=== PATIENT | male | born 1950 | race Caucasian/White ===

== ENCOUNTER 2016-09-29 11:37 | Emergency (ER) | payer MEDICARE, OTHER ==
[2016-09-29 12:24] VITALS: BP 160/85
[2016-09-29 12:24] LABS: Hematocrit 48.2 % (42.0-52.0); Hemoglobin 15.8 gm/dL (13.5-18.0); Mean Cell Volume 88.3 fl (78-100); Mean Corpuscular Hemoglobin 28.9 pg (27-31); Mean Corpuscular Hgb Conc 32.8 g/dl (32-36); Mean Platelet Volume 10.3 fl (6.0-9.5); Neutrophil # 5.2 K/mm3 (1.3-6.0); Neutrophil % 66.3 % (42-75.0); Platelet Count 588 K/mm3 (150-450); Red Blood Count 5.46 M/mm3 (4.7-6.0); Red Cell Distribution Width 13.1 % (11.5-14.0); White Blood Count 7.9 K/mm3 (4.0-10.5)
[2016-09-29] MEDS ORDERED: MECLIZINE HCL 25 MG TABLET PO ONE (12:29)
--- NOTE | 2016-09-29 12:39 | ERNOTE ---
Syncope ER HPI Date of Service: 09/29/16 Stated Complaint: FALL DIZZINESS Time Seen by Provider: 09/29/16 12:20 Source: patient Exam Limitations: no limitations Immunizations: IMMUNIZATION HX Immunizations Up to Date Yes History of Influenza Vaccine Yes Hx Pneumococcal Vaccination No Allergies/Adverse Reactions: Allergies simvastatin Allergy (Verified 09/15/16 09:45) Home Medications: HOME MEDICATIONS Aspirin [Aspir 81] 81 mg PO DAILY 08/18/12 [Last Taken Unknown] Captopril [Capoten] 50 mg PO DAILY 08/18/12 [Last Taken Unknown] Glucosam Fay/Chondroitin/Ao Mv5 [Relamine Tablet] 1 each PO DAILY 08/18/12 [Last Taken Unknown] Multivitamin [Multivitamins] 1 each PO DAILY 08/18/12 [Last Taken Unknown] Omeprazole [Prilosec Generic] 20 mg PO DAILY 08/18/12 [Last Taken Unknown] Fluticasone Propionate [Flonase] 2 spray NS BID #1 inhaler 09/29/16 [Last Taken Unknown] Meclizine HCl [Antivert] 25 mg PO QID PRN #40 tab 09/29/16 [Last Taken Unknown] - History of Present Illness Narrative: Pt. comes from [facility] with c/o dizziness, for to days and standing up this morning out of bed and losing consciousness for about 10 seconds and hitting his upper forehead on the doorjamb. Pt. denies any SOB, CP, palpitations, NVD, recent illness, fever, vision changes, but does state that he is still dizzy especially with taking on and off his glasses or changing position. Pt. denies any prehsopital treatment, alleviating factors, or aggravating factors. Review of Systems - Review of Systems Constitutional: Present: no symptoms reported. Absent: recent illness, fever, chills, weakness, fatigue, malaise, decreased activity level EYE: Present: no symptoms reported ENT: Present: no symptoms reported. Absent: ear pain, ear discharge, nose pain , nose congestion, nasal drainage, sore throat Respiratory: Present: no symptoms reported. Absent: shortness of breath, cough , wheezing Cardiology: Present: no symptoms reported. Absent: chest pain, palpitations, edema Gastrointestinal/Abdominal: Present: no symptoms reported. Absent: nausea, vomiting, diarrhea Genitourinary: Present: no symptoms reported Musculoskeletal: Present: no symptoms reported. Absent: back pain, joint pain Skin: Present: no symptoms reported Neurological: Present: dizziness/light-headedness. Absent: headache, numbness, tingling All Other Systems: All systems neg except as marked - Patient's Past Medical History Patient History - Medical: GERD Patient History - Cardiac/Respiratory: Hypertension, CPAP/BiPAP Home Use Patient History - Cancer: No Hx of Cancer Patient History - Surgical Procedures: Colonoscopy - Social History Living Situations: home Smoking Status: Never smoker Alcohol Use: occasionally Drug Use: none Physical Exam - Physical Exam General Appearance: Present: wd/wn, alert, no apparent distress Eye Exam: Normal inspection: bilateral, PERRL: bilateral, EOMI: bilateral Ears, Nose, Throat: Present: normal ENT inspection, hearing grossly normal, normal pharynx. Absent: nasal congestion, sinus pain/drainage, pharyngeal erythema, pharyngeal swelling Neck: Present: normal inspection, nontender. Absent: lymphadenopathy (R), lymphadenopathy (L) Respiratory: Present: no respiratory distress, normal breath sounds, no accessory muscle use, chest nontender, lungs clear Cardiovascular/Chest: Present: regular rate, rhythm, no murmur, normal peripheral pulses Gastrointestinal/Abdominal: Present: normal bowel sounds, nontender, nondistended, soft, no organomegaly Back Exam: Present: normal inspection, normal range of motion, no CVA tenderness , no vertebral tenderness Extremity Exam: Present: normal inspection, non-tender, no edema, normal range of motion Neurological Exam: Present: alert, oriented, normal mood/affect, no motor/ sensory deficits, meat grader II-XII nml as tested, normal cerebellar test Skin Exam: Present: normal color, warm/dry. Absent: pallor, skin rash Lymphatic Exam: Present: no adenopathy ED Progress - Date and Time Seen: Date and Time: 09/29/16 14:42 As pt. has intermittent symptoms and reproduce with standing and sitting and pt. has negative neuro exam feel that pt. may benefit from BPV treatment at PT. Spoke with Dr Caba and he agrees with this and would also like me to start pt. on Flonase just in case there is any middle ear fluid. - Results and Orders Patient's Lab Results:: I have reviewed the patient's lab results. - Vital Signs Patient's Vital Signs:: I have reviewed the patient's vital signs. Vital Signs: Vital Signs 09/29/16 09/29/16 09/29/16 11:42 12:19 12:24 Temperature 35.8 C L Pulse Rate 61 61 Respiratory 20 Rate Blood Pressure 180/90 160/85 - EKG EKG: other - Sinus martinez - CT/Ultrasound CT/Ultrasound Narrative: CT head negative - Progress/Reassessment Chief Complaint: Syncopal Episode Progress:: Improved Departure Clinical Impression: BPV (benign positional vertigo) Qualifiers: Laterality: bilateral Qualified Code(s): H81.13 - Benign paroxysmal vertigo, bilateral - Departure Disposition: Home self-care Condition: Good Instructions: Vertigo, [id number] Additional Instructions: Please follow up with primary provider in 2-3 days. Please start PT as arranged. Referrals: Jason Caba DO [Primary Care Provider] - Prescriptions: Fluticasone Propionate [Flonase] 2 spray NS BID #1 inhaler Meclizine HCl [Antivert] 25 mg PO QID PRN #40 tab PRN Reason: DIZZINESS
[2016-09-29 12:48] LABS: ALT 71 U/L (19-67); AST 36 U/L (0-48); Albumin * 4.2 gm/dl (3.4-5.0); Alkaline Phosphatase * 118 U/L (50-170); Anion Gap 14.8 mmol/L (6.8-13.8); BUN/Creatinine Ratio 20.4 (9.0-21.6); Bilirubin, Total 0.8 mg/dL (0.0-1.1); Blood Urea Nitrogen 20 mg/dL (6-23); Ca. Corrected For Albumin 8.9 mg/dL (8.4-10.2); Calcium * 9.4 mg/dL (7.9-10.9); Carbon Dioxide 26.5 mmol/L (24-32.6); Chloride 103 mmol/L (97-106); Glucose * 94 mg/dL (70-110); Potassium 4.3 mmol/L (3.4-4.6); Sodium 140 mmol/L (132-142); Total Protein 7.6 gm/dL (6.2-8.2)
[2016-09-29] MEDS ORDERED: MECLIZINE HCL 25 MG TABLET ONE (12:49)
[2016-09-29 12:51] LABS: Troponin I Less than 0.017 ng/ml (0.00-0.10)
[2016-09-29 13:10] LABS: Urine Bilirubin Negative (NEGATIVE); Urine Blood Negative /ul (NEGATIVE); Urine Ketone Negative (NEGATIVE); Urine Nitrite Negative (NEGATIVE); Urine Protein Negative (NEGATIVE); Urine Urobilinogen Normal (NORMAL); Urine pH 5.5 pH (5.0-7.0)
[2016-09-29 13:45] LABS: Urine Appearance Clear; Urine Bacteria None Seen; Urine Color Yellow; Urine RBC None Seen /hpf (0-5); Urine WBC None Seen /hpf (0-5)
== END 2016-09-29 15:11 | disposition home or self-care (01) ==
LOC: ER 11:37
DX: H81.13 Benign paroxysmal vertigo, bilateral (principal); K21.9 Gastro-esophageal reflux disease without esophagitis; I10 Essential (primary) hypertension

== ENCOUNTER 2017-06-01 10:56 | Emergency (ER) | payer MEDICARE, OTHER ==
[2017-06-01] MEDS ORDERED: KETOROLAC TROMETHAMINE 60 MG/2 ML VIAL IM ONE ×2 (11:21→12:00)
--- NOTE | 2017-06-01 11:32 | ERNOTE ---
Lower Extremity HPI - Narrative Date of Service: 06/01/17 - General Lower Extremities Pain: leg: right, knee: right, thigh: right, foot: right Time Seen by Provider: 06/01/17 11:11 Source: patient, old records Exam Limitations: no limitations - Immun/Allergies/Home Medications Immunizations: IMMUNIZATION HX Immunizations Up to Date Yes History of Influenza Vaccine Yes Hx Pneumococcal Vaccination No Allergies/Adverse Reactions: Allergies Allergy/AdvReac Type Severity Reaction Status Date / Time simvastatin Allergy Verified 06/01/17 11:07 Home Medications: HOME MEDICATIONS Aspirin [Aspir 81] 81 mg PO DAILY 08/18/12 [Last Taken Unknown] Captopril [Capoten] 50 mg PO DAILY 08/18/12 [Last Taken Unknown] Omeprazole [Prilosec Generic] 20 mg PO DAILY 08/18/12 [Last Taken Unknown] Meclizine HCl [Antivert] 25 mg PO QID PRN #40 tab 09/29/16 [Last Taken Unknown] Sulfamethoxazole/Trimethoprim [Bactrim Ds] 1 tab PO BID #28 tab 06/01/17 [Last Taken Unknown] - History of Present Illness Narrative: Pt. comes in with c/o RLE pain and swelling for over two weeks. Pt. has a hx of restless leg syndrome and chronic venous insufficiency of BLE so when it started pt. thought it was just due to this but when the swelling, redness and pain worsened he saw his PCP and had a venous US to rule out DVT which was negative. Pt. states that since he saw his PCP on that it has worsened and moved proximally. Review of Systems - Review of Systems Constitutional: Present: no symptoms reported. Absent: recent illness, fever, chills, weakness, fatigue, malaise EYE: Present: no symptoms reported ENT: Present: no symptoms reported Respiratory: Present: no symptoms reported. Absent: shortness of breath, cough , wheezing Cardiology: Present: no symptoms reported. Absent: chest pain, palpitations, edema Gastrointestinal/Abdominal: Present: no symptoms reported. Absent: nausea, vomiting, diarrhea Genitourinary: Present: no symptoms reported Musculoskeletal: Present: other - RLE swelling from mid thigh to toes Skin: Present: change in color - darkened RLE from mid thigh distally Neurological: Present: no symptoms reported. Absent: headache, dizziness/light- headedness, numbness, tingling All Other Systems: All systems neg except as marked - Patient's Past Medical History Patient History - Medical: GERD, Other - PVD BLE with restless leg Patient History - Cardiac/Respiratory: Hypertension Patient History - Cancer: No Hx of Cancer Patient History - Surgical Procedures: Colonoscopy Patient History - Other: None - Social History Living Situations: home Abuse History: No History of abuse Psych History: No pertinent hx Smoking Status: Never smoker Have you smoked in the past 12 months: No Alcohol Use: occasionally Drug Use: none - Immunizations Immunizations Up to Date: Yes Hx Pneumococcal Vaccination: No History of Influenza Vaccine: Yes Physical Exam - Physical Exam General Appearance: Present: wd/wn, alert, no apparent distress Head Exam: Present: normal inspection, no evidence of injury Eye Exam: Normal inspection: bilateral, PERRL: bilateral, EOMI: bilateral Neck: Present: normal inspection, nontender. Absent: lymphadenopathy (R), lymphadenopathy (L) Respiratory: Present: no respiratory distress, normal breath sounds, no accessory muscle use, chest nontender, lungs clear Cardiovascular/Chest: Present: regular rate, rhythm, no murmur, normal peripheral pulses Extremity Exam: Present: extremity edema - RLE mid thigh distally, other - pedal and post tibial pulses nonpalpable able to doppler only femoral pulse strong Neurological Exam: Present: alert, oriented, normal mood/affect, other - R toes decreased sensation Skin Exam: Present: normal color, warm/dry. Absent: pallor, skin rash ED Progress - Date and Time Seen: Date and Time: 06/01/17 12:[address] Montero and he recommends consulting vascular surgeon. 06/01/17 12:[address] Dunaway and he recommends sending pt. home on abx and having him follow up with him tomorrow morning. - Results and Orders Patient's Lab Results:: I have reviewed the patient's lab results. - Vital Signs Patient's Vital Signs:: I have reviewed the patient's vital signs. Vital Signs: Vital Signs 06/01/17 11:04 Temperature 36.7 C Pulse Rate 61 Respiratory 14 Rate Blood Pressure 161/76 O2 Sat by Pulse 97 Oximetry - CT/Ultrasound CT/Ultrasound Narrative: Arterial doppler with atherosclerotic changes but no occlusion - Progress/Reassessment Chief Complaint: Lower Extremity Pain/ Injury Progress:: Unchanged Departure Clinical Impression: Leg edema, Lymphangitis, acute, lower leg - Departure Disposition: Home self-care Condition: Fair Instructions: Lymphangitis, Pediatric, Lymphadenopathy Additional Instructions: Please follow up with Dr Dunaway tomorrow at 0900. Referrals: Adali Herrera DO [Primary Care Provider] - Prescriptions: Sulfamethoxazole/Trimethoprim [Bactrim Ds] 1 tab PO BID #28 tab
[2017-06-01 11:37] LABS: Hematocrit 45.6 % (42.0-52.0); Hemoglobin 15.1 gm/dL (13.5-18.0); Mean Cell Volume 89.4 fl (78-100); Mean Corpuscular Hemoglobin 29.6 pg (27-31); Mean Corpuscular Hgb Conc 33.1 g/dl (32-36); Mean Platelet Volume 10.3 fl (6.0-9.5); Neutrophil # 6.1 K/mm3 (1.3-6.0); Neutrophil % 73.3 % (42-75.0); Platelet Count 665 K/mm3 (150-450); Red Cell Distribution Width 13.3 % (11.5-14.0); White Blood Count 8.4 K/mm3 (4.0-10.5)
[2017-06-01 11:51] LABS: Anion Gap 15.6 mmol/L (6.8-13.8); BUN/Creatinine Ratio 19.8 (9.0-21.6); Bilirubin, Total 0.8 mg/dL (0.0-1.1); Ca. Corrected For Albumin 8.5 mg/dL (8.4-10.2); Calcium * 8.8 mg/dL (7.9-10.9); Carbon Dioxide 25.9 mmol/L (24-32.6); Potassium 4.5 mmol/L (3.4-4.6); Total Protein 7.4 gm/dL (6.2-8.2); Uric Acid 6.5 mg/dL (2.6-7.2)
[2017-06-01 12:46] VITALS: BP 149/71
== END 2017-06-01 12:40 | disposition home or self-care (01) ==
LOC: ER 10:56
DX: L03.125 Acute lymphangitis of right lower limb (principal); R60.0 Localized edema; I10 Essential (primary) hypertension; K21.9 Gastro-esophageal reflux disease without esophagitis